=== PATIENT | male | born 1975 | race Hispanic/Latino ===

== ENCOUNTER 2018-02-22 10:53 | Observation (INO) | payer OTHER ==
[2018-02-22 10:55] VITALS: BMI 21.5
--- NOTE | 2018-02-22 12:32 | RAD ---
Date of service: 02/22/2018 HISTORY: possible admission COMPARISON: No prior. FINDINGS: LUNGS: The lungs are well inflated and clear. PLEURA: No pleural effusions or pneumothorax. CARDIOVASCULAR: There is mild cardiomegaly. No aortic atherosclerotic calcification present. OSSEOUS STRUCTURES: Within normal limits for the patient's age. VISUALIZED UPPER ABDOMEN: Normal. OTHER FINDINGS: None. IMPRESSION: No active pulmonary disease.
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
[2018-02-22 14:43] LABS: ALB/GLOB RATIO 1.4 (1.0-2.1); ALBUMIN 4.6 g/dL (3.5-5.0); BLOOD UREA NITROGEN 16 mg/dl (9-20); CALCIUM 10.1 mg/dL (8.4-10.2); GFR NON-AFRICAN AMERICAN > 60
[2018-02-22 14:44] LABS: ALT/SGPT 63 U/L (21-72); AST/SGOT 31 U/L (17-59)
[2018-02-22 15:08] LABS: BASO # 0.1 K/uL (0.0-0.2); BASO % 0.9 % (0.0-2.0); EOS # 0.2 K/uL (0.0-0.7); EOS % 2.8 % (0.0-4.0); HEMOGLOBIN 14.4 g/dL (12.0-18.0); LYMPH # 1.4 K/uL (1.0-4.3); LYMPH % 19.4 % (20.0-40.0); MEAN CELL VOLUME 85.8 fl (80.0-94.0); MEAN CORPUSCULAR HEMOGLOBIN 28.2 pg (27.0-31.0); MEAN CORPUSCULAR HGB CONC 32.9 g/dL (33.0-37.0); MEAN PLATELET VOLUME 9.1 fl (7.2-11.7); MONO # 0.6 K/uL (0.0-0.8); MONO % 8.7 % (0.0-10.0); NEUT # 4.8 K/uL (1.8-7.0); NEUT % 68.2 % (50.0-75.0); NRBC % 0.3 % (0.0-0.0); RBC 5.1 Mil/uL (4.40-5.90); WHITE BLOOD COUNT 7.1 K/uL (4.8-10.8)
[2018-02-22 15:11] LABS: PROTHROMBIN TIME 10.9 Seconds (9.8-13.1)
[2018-02-22 15:15] LABS: B-TYPE NATRIURETIC PEPTIDE 11.5 pg/ml (0-450)
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
--- NOTE | 2018-02-23 09:21 | CARD ---
APPROVED REPORT Date of service: 02/22/2018 EKG Measurement Heart [id number] <Conclusion> Normal sinus rhythm Minimal voltage criteria for LVH, may be normal variant Borderline ECG
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
--- NOTE | 2018-02-23 18:22 | CARD ---
APPROVED REPORT Date of service: 02/23/2018 Protocol: YADY Test Type: Treadmill Stress Test Attending Physician: Dr. Dr Lasron Referring Physician: Dr. Dr Salguero Technologist: Sherly Brown Test Indications: Chest Pain Medications: Amlodipine Besylate 10mg, ASA 81mg, Enalapril Maleate 20mg, Hydrochlorothiazide 25mg, Medical History: Hypertension, Pre Diabetes, Target HR: 177 bpm Resting ECG: normal Resting Heart Rate: 93 bpm Resting Blood Pressure: 161/121mmHg submaximum (85%): 150 bpm TEST SUMMARY [id number]:01..[id number]/121.0. [id number]:[id number]/121.0. PRETESTHYPERV.00:[id number]/121.0. PRETESTWARM-UP80:[id number]/106.0. EXERCISESTAGE 103:[id number]/98.0. EXERCISESTAGE 203:[id number]/100.0. EXERCISESTAGE 300:[id number]/100.0. [id number]:[id number]/100.0. POST EXERCISE Reason for Termination: Fatigue Target heart rate achieved Target HR: NoMax HR: 144 bpm81% of Maximum Predicted HR: 177 bpm Exercise duration: 3 Stage06:29 min:secExercise capacity: 7.5METs Max Blood Pressure: 188/100mmHg Blood Pressure response to exercise: normal resting BP - exaggerated response Heart Rate response to exercise: appropriate Chest Pain: NononeAngina index: 0 Arrhythmia: Yesventricular premature beats ST Change: NononeDeviation: 0 mm INTERPRETATION Stress EKG Conclusion: Stress test: Patient was scheduled for stress test due to history of chest pain relieved by nitroglycerine. Final conclusion: Normal stress test (no evidence of stress induce myocardial ischemia) Increase blood pressure response.
[2018-02-23] MEDS ORDERED: Influenza Vaccine (5 YR UP)/PF 60 MCG/0.5 ML SYR IM ONE (20:00)
[2018-02-23] MEDS ORDERED: Pneumococcal 23-Valent Vaccine IM ONE (20:00)
--- NOTE | 2018-02-23 20:51 | CP.PCM.PN ---
Subjective - Date & Time of Evaluation Date of Evaluation: 02/23/18 Time of Evaluation: 22:22 - Subjective Subjective: Stress test done today Objective - Vital Signs/Intake and Output Vital Signs (last 24 hours): Temp Pulse Resp BP Pulse Ox 98.1 F 75 16 131/81 94 L 02/23/18 20:44 02/23/18 17:23 02/23/18 17:23 02/23/18 17:23 02/23/18 17:23 - Medications Medications: Current Medications Amlodipine Besylate (Norvasc) 10 mg PO HS [facility] Aspirin (Aspirin Chewable) 81 mg PO DAILY [facility] Last Admin: 02/23/18 12:53 Dose: 81 mg Enalapril Maleate (Vasotec) 20 mg PO HS [facility] Hydrochlorothiazide (Hydrodiuril) 25 mg PO HS [facility] - Labs Labs: 02/22/18 11:00 02/22/18 11:14 PT 10.9 Seconds (9.8-13.1) 02/22/18 12:00 INR 1.0 02/22/18 12:00 APTT 22.0 Seconds (25.6-37.1) L 02/22/18 12:00 Assessment and Plan - Assessment and Plan (Free Text) Assessment: Chest pain atypical relieved with NTG and ASA Hx TIA Hypertension hyprerlipidemia obesity EKG and CE wnl Admit to [facility] Echo stress test Hx TIA ASA Neurology LDL Prediabetes Endo Statin
--- NOTE | 2018-02-24 02:26 | CARD ---
APPROVED REPORT Date of service: 02/23/2018 EXAM: Two-dimensional and M-mode echocardiogram with Doppler and color Doppler. Other Information Quality : GoodRhythm : NSR Technically limited study due to body habitus. INDICATION Chest Pain 2D DIMENSIONS IVSd1.04 (0.7-1.1cm)LVDd4.89 (3.9-5.9cm) LVOT Diameter2.65 (1.8-2.4cm)PWd0.79 (0.7-1.1cm) IVSs1.68 (0.8-1.2cm)LVDs3.06 (2.5-4.0cm) FS (%) 37.5 %PWs1.45 (0.8-1.2cm) M-Mode DIMENSIONS Left Atrium (MM)2.94 (2.5-4.0cm)IVSd0.97 (0.7-1.1cm) Aortic Root4.21 (2.2-3.7cm)LVDd5.38 (4.0-5.6cm) Aortic Cusp Exc.2.65 (1.5-2.0cm)PWd0.94 (0.7-1.1cm) IVSs1.94 cmFS (%) 52 % LVDs2.59 (2.0-3.8cm)PWs1.68 cm Aortic Valve AoV Peak Ijnfagnt861.0cm/sAoV VTI29.3cmAO Peak GR.10mmHg LVOT Peak Gbqszuqj589.8cm/sLVOT VTI22.42cmAO Mean GR.5mmHg JENNA (VMAX)1.11nh8BRJ (VTI)1.78cm2 Mitral Valve MV E Tkvlbfwn90.0cm/sMV DECEL HLHR735fsLZ A Ubloslnx51.3cm/s MV DXL88amV/A ratio0.8MVA (PHT)3.16cm2 TDI E/Lateral E'0.0E/Medial E'0.0 Tricuspid Valve TR Peak Voqkurdn180du/sRAP FCQGQYWA10rxQbFR Peak Gr.6mmHg VPCN70ilRh LEFT VENTRICLE The left ventricle is normal size. There is normal left ventricular wall thickness. The left ventricular systolic function is normal. The estimated ejection fraction is 60-65% No regional wall motion abnormalities noted.. Transmitral Doppler flow pattern is Grade I-abnormal relaxation pattern. No left ventricle thrombus noted on this study. There is no ventricular septal defect visualized. There is no left ventricular aneurysm. There is no mass noted in the left ventricle. RIGHT VENTRICLE The right ventricle is normal size. There is normal right ventricular wall thickness. The right ventricular systolic function is normal. ATRIA The left atrium is moderately dilated. The right atrium size is normal. The interatrial septum is intact with no evidence for an atrial septal defect. AORTIC VALVE The aortic valve is normal in structure. No aortic regurgitation is present. There is no aortic valvular stenosis. There is no aortic valvular vegetation. MITRAL VALVE The mitral valve is normal in structure. There is no evidence of mitral valve prolapse. There is no mitral valve stenosis. There is no mitral valve regurgitation noted. TRICUSPID VALVE The tricuspid valve is normal in structure. There is trace tricuspid valve regurgitation noted. RVSP is calculated < 20 mm Hg. There is no tricuspid valve prolapse or vegetation. There is no tricuspid valve stenosis. PULMONIC VALVE The pulmonary valve is normal in structure. There is no pulmonic valvular regurgitation. There is no pulmonic valvular stenosis. GREAT VESSELS The aortic root is normal in size. The ascending aorta is Mildly dilated. The pulmonary artery is normal. The IVC is normal in size and collapses >50% with inspiration. PERICARDIAL EFFUSION There is no pericardial effusion. There is no pleural effusion. <Conclusion> The estimated ejection fraction is 60-65% Transmitral Doppler flow pattern is Grade I-abnormal relaxation pattern. The left atrium is moderately dilated. There is trace tricuspid valve regurgitation noted. RVSP is calculated < 20 mm Hg. The ascending aorta is Mildly dilated. Correlate clinically.
[2018-02-24 08:37] VITALS: BP 121/66; PULSE 88; RESP 15; TEMP 97.7
--- NOTE | 2018-02-24 11:36 | CP.PCM.PN ---
Subjective - Date & Time of Evaluation Date of Evaluation: 02/24/18 Time of Evaluation: 09:00 - Subjective Subjective: NO CHEST PAIN FEELS BETTER TODAY Objective - Vital Signs/Intake and Output Vital Signs (last 24 hours): Temp Pulse Resp BP Pulse Ox 97.7 F 88 15 121/66 96 02/24/18 08:00 02/24/18 08:34 02/24/18 08:00 02/24/18 08:00 02/24/18 08:00 Intake and Output: 02/24/18 02/24/18 06:59 18:59 Output Total 800 Balance -800 - Medications Medications: Current Medications Amlodipine Besylate (Norvasc) 10 mg PO [facility] Last Admin: 02/23/18 21:16 Dose: 10 mg Aspirin (Aspirin Chewable) 81 mg PO DAILY [facility] Last Admin: 02/24/18 08:43 Dose: 81 mg Enalapril Maleate (Vasotec) 20 mg PO [facility] Last Admin: 02/23/18 21:15 Dose: 20 mg Hydrochlorothiazide (Hydrodiuril) 25 mg PO [facility] Last Admin: 02/23/18 21:25 Dose: 25 mg - Labs Labs: 02/22/18 11:00 02/22/18 11:14 PT 10.9 Seconds (9.8-13.1) 02/22/18 12:00 INR 1.0 02/22/18 12:00 APTT 22.0 Seconds (25.6-37.1) L 02/22/18 12:00 - Respiratory Exam Respiratory Exam: Clear to Ausculation Bilateral - Cardiovascular Exam Cardiovascular Exam: REGULAR RHYTHM, +S1, +S2 - Extremities Exam Additional comments: NO EDEMA - Additional Findings Additional findings: STRESS TEST WAS NORMAL ECHO WITH GOOD LV FUNCTION LDL 132 Assessment and Plan - Assessment and Plan (Free Text) Assessment: CHEST PAIN WITH NEGATIVE CATDIAC [place] HYPERTENSION MILD HYPERLIPIDEMIA Plan: CONTINUE AMLODIPINE, ENALAPRIL, HCTZ AND ASPIRIN
--- NOTE | 2018-02-24 18:09 | CP.PCM.PN ---
Subjective - Date & Time of Evaluation Date of Evaluation: 02/24/18 Time of Evaluation: 22:22 - Subjective Subjective: Seen by cardiology W/U negative Objective - Vital Signs/Intake and Output Vital Signs (last 24 hours): Temp Pulse Resp BP Pulse Ox 97.7 F 88 15 121/66 96 02/24/18 12:00 02/24/18 08:34 02/24/18 08:00 02/24/18 08:00 02/24/18 08:00 Intake and Output: 02/24/18 02/24/18 06:59 18:59 Output Total 800 Balance -800 - Medications Medications: Current Medications Amlodipine Besylate (Norvasc) [address] [facility] Last Admin: 02/23/18 21:16 Dose: 10 mg Aspirin (Aspirin Chewable) 81 mg PO DAILY [facility] Last Admin: 02/24/18 08:43 Dose: 81 mg Enalapril Maleate (Vasotec) [address] [facility] Last Admin: 02/23/18 21:15 Dose: 20 mg Hydrochlorothiazide (Hydrodiuril) [address] [facility] Last Admin: 02/23/18 21:25 Dose: 25 mg - Labs Labs: 02/22/18 11:00 02/22/18 11:14 PT 10.9 Seconds (9.8-13.1) 02/22/18 12:00 INR 1.0 02/22/18 12:00 APTT 22.0 Seconds (25.6-37.1) L 02/22/18 12:00 - Respiratory Exam Respiratory Exam: NORMAL BREATHING PATTERN - Cardiovascular Exam Cardiovascular Exam: REGULAR RHYTHM - GI/Abdominal Exam GI & Abdominal Exam: Normal Bowel Sounds Assessment and Plan - Assessment and Plan (Free Text) Assessment: Chest pain atypical relieved with NTG and ASA Hx TIA Hypertension hyprerlipidemia obesity EKG and CE wnl Stress test and Echo wnl Hx TIA ASA LDL Prediabetes Endo t/c Statin
[2018-02-26 16:18] VITALS: O2SAT 100
== END 2018-02-24 14:02 | disposition home or self-care (01) ==
LOC: H.ER 10:53 → H.ERHOLD 17:27 → H.ICU/CCU 02-23 17:17
PROVIDERS: ADMIT Family Medicine Geriatric Medicine; ATTEND Family Medicine Geriatric Medicine
DX: R07.89 Other chest pain (principal); I10 Essential (primary) hypertension; E78.5 Hyperlipidemia, unspecified; R73.03 Prediabetes; E66.9 Obesity, unspecified; Z68.41 Body mass index [BMI] 40.0-44.9, adult; Z86.73 Personal history of transient ischemic attack (TIA), and cerebral infarction without residual deficits
CPT/HCPCS: 71045; 80053; 80061; 83036; 83880; 84443; 84484; 85025; 85610; 85730; 87081; 93005; 93017; 93306; 99285; G0378